=== PATIENT | male | born 1975 | race Caucasian/White ===

== ENCOUNTER 2019-07-31 03:40 | Emergency (ER) | payer MEDICAID, OTHER ==
[~2019-07-31] VITALS: Ht 175.3 cm; Wt 66.3 kg
[2019-07-31 04:38] VITALS: BP 140/100
[2019-07-31] MEDS ORDERED: cloNIDine HCL 0.1 MG TAB PO ONE (05:00)
== END 2019-07-31 05:39 | disposition home or self-care (01) ==
LOC: ER 03:42
DX: I16.0 Hypertensive urgency (principal); J44.9 Chronic obstructive pulmonary disease, unspecified; I10 Essential (primary) hypertension